=== PATIENT | male | born 1945 | race Two or more races ===

== ENCOUNTER 2021-07-15 19:47 | Emergency (ER) | payer MEDICARE, MEDICAID ==
[~2021-07-15] VITALS: Ht 170.2 cm; Wt 72.7 kg
[2021-07-15] MEDS ORDERED: ASPI-1450 PO (20:13)
[2021-07-15] MEDS ORDERED: LISI-893 PO (20:13)
[2021-07-15 20:30] VITALS: BP 124/83
== END 2021-07-15 20:50 | disposition home or self-care (01) ==
LOC: EMS 19:55
DX: Z20.822 Contact with and (suspected) exposure to COVID-19 (principal)
CPT/HCPCS: 99283; U0003